=== PATIENT | female | born 1965 ===

== ENCOUNTER 2019-12-13 13:34 | Emergency (ER) | payer MEDICAID ==
[2019-12-13] MEDS ORDERED: KETAMINE 500 MG/10 ML VIAL IM STA (13:37)
[2019-12-13] MEDS ORDERED: SODIUM CHLORIDE 0.9% 1,000 ML IV STA ×2 (13:39→15:30)
[2019-12-13] MEDS ORDERED: LORazepam 2 MG/ML VIAL IVP STA ×3 (13:39→15:37)
--- NOTE | 2019-12-13 13:41 | ED Physician Documentation ---
PD HPI MHE - Stated complaint Stated Complaint: MHE - History obtained from History obtained from: Patient, Police - History of Present Illness Primary symptom: Manic (The patient was brought in with handcuff restraints due to agitation and combativeness. She reportedly has been wandering around [place] and in the streets and potentially unsafe that way and unresponsive to police interactions. [facility] also talked with her and found her unfo cused/uncooperative). No: Suicidal ideation, Suicide attempt Timing - onset: How many days ago (several days at least. Unknown history for patient prior to that) Contributing factors: Other (Unknown triggers per se as the patient is not really answering questions but just screaming about "her rights" and "I will trung all of you".). No: Substance abuse - ETOH, Substance abuse - drugs Similar symptoms before: Other (unknown history) Recently seen: Not recently seen Review of Systems Unable to obtain: Uncooperative Cardiac: denies: Chest pain / pressure GI: denies: Abdominal Pain Neurologic: denies: Headache PD PAST MEDICAL HISTORY - Past Medical History Psych: Other (unknown) - Allergies Allergies/Adverse Reactions: Allergies Allergy/AdvReac Type Severity Reaction Status Date / Time Penicillins Allergy Anaphylaxis Verified 12/13/19 18:11 PD ED PE NORMAL - Vitals Vital signs reviewed: Yes (exam limited by cooperation initially) - General General: Well developed/nourished, Other (The patient has intelligible sentences and words. She is forming complete sentences but is unfocused and unwilling to converse or listen to what I am saying. She keeps screaming and yelling.). No: No acute distress (highly agitated and uncooperative; arrived in restraints. ) - HEENT HEENT: Atraumatic, Pharynx benign. No: Moist mucous membranes - Neck Neck: Supple, no meningeal sign, No bony TTP - Cardiac Cardiac: RRR - Respiratory Respiratory: Clear bilaterally - Abdomen Abdomen: Soft, Non tender, Non distended - Derm Derm: Normal color, Warm and dry - Extremities Extremities: Normal ROM s pain - Neuro Neuro: No motor deficit, No sensory deficit, Normal speech - Psych Psych: No: Normal affect (agitated and unfocused, screaming about "my rights" and "I will trung you all" but would not calm enough to allow my talking, and would not interact in any conversation. ) Results - Vitals Vitals: Vital Signs - 24 hr 12/13/19 12/13/19 12/13/19 13:38 13:48 14:18 Temperature 37.3 C Heart Rate 72 100 110 H Respiratory 24 22 18 Rate Blood Pressure 135/81 H 196/96 H 173/94 H O2 Saturation 95 96 96 12/13/19 12/13/19 12/13/19 14:44 14:57 15:10 Temperature Heart Rate 108 H 92 90 Respiratory 14 12 17 Rate Blood Pressure 174/107 H 163/104 H 173/108 H O2 Saturation 99 99 100 12/13/19 12/13/19 12/13/19 15:24 16:00 17:00 Temperature Heart Rate 80 78 62 Respiratory 14 15 14 Rate Blood Pressure 133/85 H 106/68 O2 Saturation 99 99 12/13/19 12/13/19 12/13/19 18:00 19:00 19:16 Temperature Heart Rate 69 77 66 Respiratory 18 14 16 Rate Blood Pressure 106/68 101/65 O2 Saturation 98 99 Oxygen O2 Source Room air - EKG (time done) 14:11 Rate: Rate (enter#) (114) Rhythm: Sinus tachycardia [place]: Normal Intervals: Normal [place] QRS: Normal Ischemia: Normal ST segments. No: ST elevation c/w ischemia, ST depression Compare to prior EKG: Old EKG unavailable - Labs Labs: Laboratory Tests 12/13/19 12/13/19 12/13/19 14:10 14:10 14:10 WBC 12.9 H RBC 4.16 L Hgb 13.3 Hct 40.2 MCV 96.6 MCH 32.0 H MCHC 33.1 RDW 14.5 Plt Count 302 MPV 11.3 H Neut # (Auto) 7.9 H Lymph # (Auto) 3.7 H [place] # (Auto) 1.0 Eos # (Auto) 0.1 Baso # (Auto) 0.1 Absolute Nucleated RBC 0.00 Nucleated RBC % 0.0 Sodium 138 Potassium 3.9 Chloride 101 Carbon Dioxide 23 Anion Gap 14.0 H BUN 15 Creatinine 0.9 Estimated GFR (MDRD) 66 L Glucose 104 H Calcium 9.5 Total Bilirubin 0.5 AST 24 ALT 18 Alkaline Phosphatase 62 Total Creatine Kinase 120 Total Protein 7.1 Albumin 4.3 Globulin 2.8 Albumin/Globulin Ratio 1.5 Lipase 84 H TSH 17.47 H Thyroxine (T4) Free T3 pg/mL Urine Color Urine Clarity Urine pH Ur Specific [place] Urine Protein Urine Glucose (UA) Urine Ketones Urine Occult Blood Urine Nitrite Urine Bilirubin Urine Urobilinogen Ur Leukocyte Esterase Urine RBC Urine WBC Ur Squamous Epith Cells Amorphous Sediment Urine Bacteria Ur Microscopic Review Urine Culture Comments Urine HCG, Qual Salicylates < 6.0 Urine Opiates Screen Ur Oxycodone Screen Urine Methadone Screen Ur Propoxyphene Screen Acetaminophen < 10 L Ur Barbiturates Screen Ur Tricyclics Screen Ur Phencyclidine Scrn Ur Amphetamine Screen U Methamphetamines Scrn U Benzodiazepines Scrn Urine Cocaine Screen U Cannabinoids Screen Ethyl Alcohol < 5.0 12/13/19 12/13/19 14:10 15:20 WBC RBC Hgb Hct MCV MCH MCHC RDW Plt Count MPV Neut # (Auto) Lymph # (Auto) [place] # (Auto) Eos # (Auto) Baso # (Auto) Absolute Nucleated RBC Nucleated RBC % Sodium Potassium Chloride Carbon Dioxide Anion Gap BUN Creatinine Estimated GFR (MDRD) Glucose Calcium Total Bilirubin AST ALT Alkaline Phosphatase Total Creatine Kinase Total Protein Albumin Globulin Albumin/Globulin Ratio Lipase TSH Thyroxine (T4) 5.80 L Free T3 pg/mL 2.65 Urine Color YELLOW Urine Clarity CLEAR Urine pH 7.5 Ur Specific [place] 1.015 Urine Protein NEGATIVE Urine Glucose (UA) 100 H Urine Ketones NEGATIVE Urine Occult Blood MODERATE H Urine Nitrite NEGATIVE Urine Bilirubin NEGATIVE Urine Urobilinogen 0.2 (NORMAL) Ur Leukocyte Esterase NEGATIVE Urine RBC 6-10 H Urine WBC 0-3 Ur Squamous Epith Cells NONE SEEN Amorphous Sediment Rare Urine Bacteria None Seen Ur Microscopic Review INDICATED Urine Culture Comments NOT INDICATED Urine HCG, Qual NEGATIVE Salicylates Urine Opiates Screen NEGATIVE Ur Oxycodone Screen NEGATIVE Urine Methadone Screen NEGATIVE Ur Propoxyphene Screen NEGATIVE Acetaminophen Ur Barbiturates Screen NEGATIVE Ur Tricyclics Screen NEGATIVE Ur Phencyclidine Scrn NEGATIVE Ur Amphetamine Screen NEGATIVE U Methamphetamines Scrn NEGATIVE U Benzodiazepines Scrn NEGATIVE Urine Cocaine Screen NEGATIVE U Cannabinoids Screen NEGATIVE Ethyl Alcohol PD MEDICAL DECISION MAKING - ED course Complexity details: re-evaluated patient (As the ketamine was wearing off, the patient was awakened conversant or I should say yelling without focus again. Not really having a to a conversation. She is given Ativan 1 mg IV which did allow her to rest again. Vitals remained stable. She was able to interact some with the [facility] ), considered differential (Patient is a bit unfocused and screaming and yelling. She is not responding to verbal interaction. Her sentences are coherent but just unfocused.), d/w patient ED course: She is brought in by police after interactions with the [facility] P with concern for inability to care for herself due to psych theatric problems apparently. The patient was screaming and yelling and needing restraining. She was not responding to verbal de-escalation. We added medication to help with calming and sedation to minimize the degree of potential injury from physical restraints. Started with ketamine IM at usual IM dose of 5 mg/kg for sedation to allow starting of IV, obtaining blood and urine with the most comfort and safety for the patient and staff. RT and nursing available at time of med administration. Departure - Departure Disposition: 65 Psych Hosp/Unit DC/Xfer Clinical Impression: Manic behavior, [place] disability Condition: Stable Record reviewed to determine appropriate education?: Yes
[2019-12-13 14:33] LABS: BASOPHILS # (AUTO) 0.1 10^3/uL (0.0-0.1); EOSINOPHILS # (AUTO) 0.1 10^3/uL (0.0-0.7); EOSINOPHILS % (AUTO) 0.6 %; HGB - HEMOGLOBIN 13.3 g/dL (12.0-16.0); LYMPHOCYTES # (AUTO) 3.7 10^3/uL (1.5-3.5); LYMPHOCYTES % (AUTO) 28.8 %; MEAN CORPUSCULAR HGB CONC 33.1 g/dL (32.0-36.0); MEAN CORPUSCULAR VOLUME 96.6 fL (81.0-99.0); MEAN PLATELET VOLUME 11.3 fL (7.9-10.8); MONOCYTES % (AUTO) 7.7 %; NEUTROPHILS # (AUTO) 7.9 10^3/uL (1.5-6.6); NEUTROPHILS % (AUTO) 61.4 %; PLT - PLATELET COUNT 302 10^3/uL (130-450); RED BLOOD COUNT 4.16 10^6/uL (4.20-5.40); RED CELL DISTRIBUTION WIDTH 14.5 % (12.0-15.0); WHITE BLOOD COUNT 12.9 x10^3/uL (4.8-10.8)
[2019-12-13 14:48] LABS: ACETAMINOPHEN < 10 ug/mL (10-30); ALBUMIN 4.3 g/dL (3.2-5.5); ALBUMIN/GLOBULIN RATIO 1.5 (1.0-2.2); ALKALINE PHOSPHATASE 62 IU/L (42-121); ALT ALANINE AMINOTRANSFERASE 18 IU/L (10-60); AST ASPARTATE AMINOTRANSFERASE 24 IU/L (10-42); BILIRUBIN,TOTAL 0.5 mg/dL (0.2-1.0); BUN - BLOOD UREA NITROGEN 15 mg/dL (6-20); CALCIUM 9.5 mg/dL (8.5-10.3); CARBON DIOXIDE - CO2 23 mmol/L (21-32); CHLORIDE 101 mmol/L (101-111); CK- CREATINE KINASE 120 IU/L (22-269); CREATININE 0.9 mg/dL (0.4-1.0); GLUCOSE 104 mg/dL (70-100); LIPASE 84 U/L (22-51); SALICYLATE < 6.0 mg/dL; SODIUM 138 mmol/L (135-145); TOTAL PROTEIN 7.1 g/dL (6.7-8.2)
[2019-12-13 15:43] LABS: BILIRUBIN,URINE NEGATIVE (NEGATIVE); GLUCOSE, URINE (UA) 100 mg/dL (NEGATIVE); KETONES,URINE (UA) NEGATIVE (NEGATIVE); LEUKOCYTE ESTERASE, URINE NEGATIVE (NEGATIVE); MUDS CUTOFF CONCENTRATIONS CUTOFF CONC BELOW:; NITRITE,URINE NEGATIVE (NEGATIVE); OCCULT BLOOD,URINE MODERATE (NEGATIVE); PH,URINE 7.5 PH (5.0-7.5); PROTEIN,URINE NEGATIVE (NEGATIVE); UROBILINOGEN,URINE 0.2 (NORMAL) E.U./dL (NORMAL)
[2019-12-13 15:44] LABS: CLARITY,URINE CLEAR (CLEAR)
[2019-12-13 15:45] LABS: HCG UR QUAL NEGATIVE
[2019-12-13 15:54] LABS: AMPHETAMINE SCREEN,URINE NEGATIVE (NEGATIVE); BENZODIAZEPINES SCREEN, URINE NEGATIVE (NEGATIVE); COCAINE SCREEN URINE NEGATIVE (NEGATIVE); METHADONE SCREEN, URINE NEGATIVE (NEGATIVE); METHAMPHETAMINES SCREEN, URINE NEGATIVE (NEGATIVE); OPIATE SCREEN, URINE NEGATIVE (NEGATIVE); OXYCODONE SCREEN, URINE NEGATIVE (NEGATIVE); PROPOXYPHENE SCREEN, URINE NEGATIVE (NEGATIVE); TRICYCLIC ANTIDEPRESSANT,URINE NEGATIVE (NEGATIVE)
[2019-12-13 15:57] LABS: T4 (THYROXINE) 5.8 ug/dL (6.09-12.23)
[2019-12-13 15:59] LABS: AMORPHOUS SEDIMENT,UR Rare /LPF; BACTERIA,URINE None Seen /HPF (None Seen); SQUAMOUS EPITHELIAL CELL,UR NONE SEEN (<= Few)
[2019-12-13 16:02] LABS: FREE T3 2.65 pg/mL (2.5-3.9)
[2019-12-13 21:26] VITALS: BP 110/72
== END 2019-12-13 21:50 ==
LOC: ED 13:34
DX: F30.9 Manic episode, unspecified (principal); Z78.1 Physical restraint status; R00.0 Tachycardia, unspecified; Z20.828 Contact with and (suspected) exposure to other viral communicable diseases
CPT/HCPCS: 36415; 80053; 80306; 80307; 80320; 80329; 81001; 81025; 82550; 83690; 84436; 84443; 84481; 85025; 87635; 93005; 96361; 96372; 96374; 99285; J2060; 81003; 87086; 94770

== ENCOUNTER 2019-12-13 21:41 | Outpatient (CLI) | payer MEDICAID | END 2019-12-13 21:42 | LOC: EMS 21:41 | PROVIDERS: ATTEND Surgery | DX: R46.89 Other symptoms and signs involving appearance and behavior (principal); R45.1 Restlessness and agitation | CPT/HCPCS: A0425; A0428 ==